=== PATIENT | female | born 1965 | race African-American/Black ===

== ENCOUNTER 2017-02-12 12:29 | Outpatient (CLI) | payer OTHER ==
--- NOTE | 2017-02-12 16:19 | RAD ---
LEFT SHOULDER 3 VIEWS: HISTORY: Left shoulder pain. FINDINGS: Glenohumeral alignment and acromioclavicular alignment are maintained. There is mild osteophytosis. No acute fracture, dislocation, or aggressive osseous erosions are apparent. IMPRESSION: Mild osteoarthritic changes left shoulder. POS: [facility]
== END 2017-02-12 12:30 | disposition home or self-care (01) ==
LOC: BURRAD 12:29
PROVIDERS: ATTEND Family Medicine
DX: M25.512 Pain in left shoulder (principal)

== ENCOUNTER 2018-03-14 09:55 | Outpatient (CLI) | payer OTHER ==
--- NOTE | 2018-03-14 19:21 | RAD ---
RIGHT HAND THREE VIEWS: 03/14/18 No fracture, dislocation, or acute bony change was seen. With reference to the middle finger, no spec ific bone or joint abnormality was seen. The carpal bones are not seen optimally, so are not fully ev aluated. There were no gross findings of concern in them. IMPRESSION: No acute bony findings. Carpals seen suboptimally. POS: HOME
== END 2018-03-14 09:56 | disposition home or self-care (01) ==
LOC: BURRAD 09:55
PROVIDERS: ATTEND Family Medicine
DX: M79.641 Pain in right hand (principal)

== ENCOUNTER 2018-10-24 16:54 | Outpatient (CLI) | payer OTHER ==
--- NOTE | 2018-10-28 11:13 | RAD ---
CHEST TWO VIEWS: 10/24/18 Comparison is made with the 03/05/13 study. The heart is normal in size and the lungs are clear. there is no acute infiltrate, cavity, or effusio n. There has been no adverse change in the interval. There may be a small granuloma in the right apex , but several bones overlap here, so I cannot be certain. IMPRESSION: No acute findings. No evidence for active thoracic disease. POS: HOME
== END 2018-10-24 16:55 | disposition home or self-care (01) ==
LOC: BURRAD 16:54
PROVIDERS: ATTEND Family Medicine
DX: R05 Cough (principal)
CPT/HCPCS: 71046

== ENCOUNTER 2019-05-03 02:18 | Emergency (ER) | payer OTHER ==
[2019-05-03] MEDS ORDERED: Metoclopramide HCl 10 MG/2 ML VIAL ONE (02:42)
[2019-05-03] MEDS ORDERED: Ketorolac Tromethamine 30 MG/ML VIAL ONE (02:42)
[2019-05-03] MEDS ORDERED: diphenhydrAMINE 50 MG/ML VIAL ONE (02:42)
== END 2019-05-03 03:35 | disposition home or self-care (01) ==
LOC: BURERS 02:18
DX: G43.909 Migraine, unspecified, not intractable, without status migrainosus (principal); M19.90 Unspecified osteoarthritis, unspecified site
CPT/HCPCS: 96361; 96374; 96375; J1200; J1885; J2765

== ENCOUNTER 2019-10-16 11:45 | Outpatient (CLI) | payer OTHER ==
--- NOTE | 2019-10-16 15:57 | RAD ---
CERVICAL SPINE 5 VIEWS: Date: 10/16/2019 There is loss of the normal cervical lordosis, which may be due to muscle spasm. No fracture, disloca tion, or soft tissue swelling seen. The C1 to dens distance is normal. Disc space narrowing and degen erative changes are seen at C4 through C6, but particularly at the C5-C6 level. Oblique views suggest some foraminal narrowing bilaterally at C4-C5 and C5-C6. IMPRESSION: Degenerative changes as noted, particularly at the C4 through C6 levels. POS: HOME
== END 2019-10-16 11:46 | disposition home or self-care (01) ==
LOC: BURRAD 11:45
PROVIDERS: ATTEND Family Medicine
DX: M47.22 Other spondylosis with radiculopathy, cervical region (principal)
CPT/HCPCS: 72050

== ENCOUNTER 2020-04-06 12:21 | Outpatient (CLI) | payer OTHER ==
--- NOTE | 2020-04-06 15:38 | RAD ---
RIGHT SHOULDER 3 VIEWS: DATE: 04/06/2020. FINDINGS: Prior postop changes are seen in the humeral head, presumably from rotator cuff surgery. No current fracture or area of bony destruction was seen. There is no dislocation. No periarticular calcificat ions were seen. The AC joint is not widened. The scapula appears normal. IMPRESSION: No significant finding. POS: HOME
--- NOTE | 2020-04-06 15:39 | RAD ---
LEFT GREAT TOE: DATE: 04/06/2020. FINDINGS: Three views show no fracture, recent or remote. The joints appear normal. The visible portions of t he adjacent 2nd toe appear intact, as do the visible parts of the 1st metatarsal. There is a very sm all area of thickening in the distal 2nd metatarsal shaft. There might have been an old stress injur y here. IMPRESSION: No acute findings in the great toe. POS: HOME
== END 2020-04-06 12:22 | disposition home or self-care (01) ==
LOC: BURRAD 12:21
PROVIDERS: ATTEND Physician Assistant
DX: S99.922A Unspecified injury of left foot, initial encounter (principal); M79.675 Pain in left toe(s); M25.511 Pain in right shoulder

== ENCOUNTER 2024-03-09 13:34 | Outpatient (CLI) | payer OTHER | END 2024-03-09 13:35 | disposition home or self-care (01) | LOC: BURRAD 13:34 | PROVIDERS: ATTEND Neurological Surgery | DX: M43.16 Spondylolisthesis, lumbar region (principal) | CPT/HCPCS: 72100 ==

== ENCOUNTER 2024-06-22 13:38 | Outpatient (CLI) | payer OTHER | END 2024-06-22 13:39 | disposition home or self-care (01) | LOC: BURRAD 13:38 | PROVIDERS: ATTEND Nurse Practitioner Family | DX: M25.532 Pain in left wrist (principal); M19.032 Primary osteoarthritis, left wrist ==

== ENCOUNTER 2025-05-18 13:47 | Outpatient (CLI) | payer OTHER | END 2025-05-18 13:48 | disposition home or self-care (01) | LOC: BURRAD 13:47 | PROVIDERS: ATTEND Nurse Practitioner Family | DX: M25.551 Pain in right hip (principal) ==